=== PATIENT | female | born 1985 | race Asian ===

== ENCOUNTER → 2023-08-15 12:41 | Outpatient (CLI) | payer OTHER, SELFPAY ==
--- NOTE | ~2023-08-15 | US_ITS ---
EXAMINATION: US pelvic complete w TV DATE: 08/15/2023 13:13 INDICATION: Abnormal uterine bleeding Comparison:No prior studies for comparison. TECHNIQUE: Multiple transabdominal and endovaginal sonographic images of the pelvis performed. FINDINGS: The uterus measures 6.8 x 5.4 x 5.6 cm. Uterus is retroverted. The endometrial complex jadiel ures 6 mm. The right ovary measures 2.9 x 2.3 x 3.3 cm and the left ovary measures 2.4 x 2.3 x 1.4 cm. There ar e small follicles in each ovary. Normal doppler signal in both ovaries. There is trace free fluid in the pelvis. There are no abnormal masses seen on either side. IMPRESSION: 1. Unremarkable pelvic ultrasound. Reviewed, dictated and finalized at location B.
== END ==
PROVIDERS: PCP Obstetrics & Gynecology; Visit Provider Obstetrics & Gynecology
DX: N93.9 Abnormal uterine and vaginal bleeding, unspecified (principal)
CPT/HCPCS: 76830; 76856

== ENCOUNTER 2023-08-15 13:29 | Outpatient (CLI) | payer OTHER, SELFPAY ==
[2023-08-15 14:18] LABS: Hemoglobin 11.7 g/dL (12.0-15.0); Mean Corpuscular HGB Conc 31.6 g/dl (32-36); Mean Corpuscular Hemoglobin 29.9 pg (26-34); Mean Corpuscular Volume 94.6 fl (80-100); Mean Platelet Volume 9.4 fl (7.4-10.4); Platelet Count Result 325 k/mm3 (150-375); Red Blood Count 3.91 M/mm3 (4.2-5.4); Red Cell Distribution Width 12.2 % (11.5-14.5); White Blood Count 3.8 K/mm3 (4.5-10.0)
[2023-08-15 14:47] LABS: Beta HCG Quantitative < 2.39 mIU/ML
[2023-08-15 14:51] LABS: Free T4 Free Thyroxine 0.89 ng/mL (0.78-2.19)
[2023-08-18 06:31] LABS: Prolactin 6.9 ng/mL (***)
== END 2023-08-15 13:30 | disposition home or self-care (01) ==
LOC: ANHLAB 13:32
PROVIDERS: PCP Obstetrics & Gynecology; Visit Provider Obstetrics & Gynecology
DX: N93.9 Abnormal uterine and vaginal bleeding, unspecified (principal)
CPT/HCPCS: 36415; 84146; 84439; 84443; 84702; 85027

== ENCOUNTER → 2023-11-03 10:49 | Outpatient (CLI) | payer OTHER, SELFPAY ==
--- NOTE | ~2023-11-03 | US_ITS ---
EXAMINATION: US OB <= 14 weeks fetus DATE: 11/03/2023 INDICATION: Spotting during first trimester TECHNIQUE: Real-time pelvic ultrasound utilizing transabdominal probe was performed. The oskar brooks radiologist was not present for the study. COMPARISON: None. FINDINGS: The uterus measures 12.4 x 7.0 x 9.5 cm. There is an intrauterine gestational sac. A yolk sac and fe candy pole are identified. The crown rump length measures 2.2 cm, which correlates with an estimated ge stational age of 9 weeks and 0 days. heart motion is identified measuring 169 beats per minute (bpm) by M-mode Doppler. 1.7 x 1.2 x 1.0 cm anechoic subchorionic hematoma along the right side of th e gestational sac. The right ovary measures 4.3 x 2.5 x 2.7 cm. The left ovary measures 3.9 x 2.5 x 3.5 cm. 2.7 cm hypoe choic likely corpus luteum cyst in the left ovary. There is no free fluid in the pelvis. IMPRESSION: 1. Single living fetus with heart rate of 169 bpm. 2. Gestational age by ultrasound of 9 weeks 0 day(s) +/- 6 day(s) with ultrasound estimated date of delivery ([facility]) of 06/07/2024. 3. Small subchorionic hematoma. Reviewed, dictated and finalized at location A. L FITTER IMPRESSION: 1. Single living fetus with heart rate of 169 bpm. 2. Gestational age by ultrasound of 9 weeks 0 day(s) +/- 6 day(s) with ultraso und estimated date of delivery ([facility]) of 06/07/2024. 3. Small subchorionic hematoma.
== END ==
PROVIDERS: PCP Advanced Practice Midwife; Visit Provider Advanced Practice Midwife
DX: O41.8X10 Other specified disorders of amniotic fluid and membranes, first trimester, not applicable or unspecified (principal); O26.851 Spotting complicating pregnancy, first trimester; Z3A.00 Weeks of gestation of pregnancy not specified
CPT/HCPCS: 76801

== ENCOUNTER → 2023-12-05 08:25 | Outpatient (CLI) | payer OTHER, SELFPAY ==
--- NOTE | ~2023-12-05 | US_ITS ---
EXAMINATION: US OB limited DATE: 12/05/2023 08:42 INDICATION: Subchorionic hematoma follow-up. First trimester. TECHNIQUE: Real-time ultrasound of the pelvis was performed. COMPARISON: None. FINDINGS: There is a single fetus in variable presentation. The placenta is normal. heart rate is 160 be ats per minute (bpm). The amniotic fluid volume is subjectively normal. IMPRESSION: 1. Single living fetus in variable presentation. 2. Normal placenta. No subchorionic hematoma. Reviewed, dictated and finalized at location A. HOUSE SUPERVISOR
== END ==
PROVIDERS: PCP Advanced Practice Midwife; Visit Provider Advanced Practice Midwife
DX: O36.8910 Maternal care for other specified fetal problems, first trimester, not applicable or unspecified (principal); Z3A.00 Weeks of gestation of pregnancy not specified
CPT/HCPCS: 76815

== ENCOUNTER 2024-05-21 11:47 | Outpatient (CLI) | payer OTHER, SELFPAY ==
--- NOTE | ~2024-05-21 | US_ITS ---
EXAMINATION: US OB follow up DATE: 05/21/2024 12:16 INDICATION: Advanced maternal age. Third trimester. TECHNIQUE: Real-time ultrasound of the pelvis was performed. COMPARISON: Ultrasound 12/05/2023, 11/03/2023 FINDINGS: There is a single living fetus in vertex presentation. The placenta is fundal and anterior. he art rate is 155 beats per minute (bpm). The amniotic fluid index is 14.2 cm, which is normal. The following biometric data were obtained: Biparietal diameter (BPD): 9.1 cm; head circumference (HC): 32.6 cm; abdominal circumference (AC): 33 .3 cm; femur length (FL): 7.2 cm. These measurements are concordant. Estimated weight is 3096 g +/- 464 g, which correlates with the 45th percentile when 06/07/24 is used as estimated date of delivery. As single measurements, these parameters are each equal to the following estimated gestational ages: BPD: 37 weeks 0 days. HC: 36 weeks 6 days. AC: 37 weeks 1 days. FL: 36 weeks 5 days. estimated gestational age based solely on measurements from this exam is 37 weeks 0 days +/- 2 weeks 4 days. IMPRESSION: 1. Single living fetus in vertex presentation. 2. Estimated weight is 3096 g +/- 464 g, which correlates with the 45th percentile when 4 is used as estimated date of delivery. This date was set by ultrasound on 11/03/2023. Reviewed, dictated and finalized at location A. IMPRESSION: 1. Single living fetus in vertex presentation. 2. Estimated weight is 3096 g +/- 464 g, which correlates with the 45th percentile when 06/07/24 is used as estimated date of delivery. This date was se t by ultrasound on 11/03/2023.
== END 2024-05-21 11:48 ==
LOC: MICIMG 11:48
PROVIDERS: PCP Internal Medicine Gastroenterology; Visit Provider Advanced Practice Midwife
DX: O09.513 Supervision of elderly primigravida, third trimester (principal)
CPT/HCPCS: 76816

== ENCOUNTER 2024-06-04 07:30 | Inpatient (IN) | payer OTHER, SELFPAY ==
[2024-06-04] VITALS (13 sets, daily range): BP systolic 101–135; BP diastolic 59–87; PULSE 56–78; RESP 16–20; TEMP 36.3–36.9; O2SAT 96–99; BMI 28.7
--- NOTE | 2024-06-04 07:30 | LDADM ---
This patient, Juhi Yip, was admitted to Labor/Delivery/Recovery 106 on 06/04/24 at 07:30. Plans for labor, pain management and were discussed with patient. Patient/family oriented to hospital policies and general routines including ID bracelet, bed and alarms, visiting hours, pain management, procedures, bathroom and other care routines, personal items, smoking policy, room service/diet and guest tray routines, infant security routines, and visiting hours. Patient/Family are encouraged to report perceived risks to care and to ask questions if they do not understand what they are told or what they should do. See OBIX for further documentation.
[2024-06-04 08:10] LABS: Basophils Percent Auto 0.3 % (0.2-1.2); Eosinophils Absolute Auto 0.1 K/mm3 (0-0.3); Eosinophils Percent Auto 0.9 % (0-4.4); Hematocrit 37.5 % (37.0-47.0); Hemoglobin 13.1 g/dL (12.0-15.0); Immature Granulocyte Absolute 0.05 K/mm3 (0.00-0.031); Immature Granulocyte Percent A 0.6 % (0-0.5); Lymphocytes Absolute Auto 1.46 K/mm3 (0.9-3.2); Lymphocytes Percent Auto 18.5 % (18.3-44.2); Mean Corpuscular HGB Conc 34.9 g/dl (32-36); Mean Corpuscular Hemoglobin 34.7 pg (26-34); Mean Corpuscular Volume 99.5 fl (80-100); Monocytes Absolute Auto 0.4 K/mm3 (0.1-0.6); Monocytes Percent Auto 5.1 % (2.6-8.5); Neutrophils Absolute Auto 5.9 K/mm3 (1.3-6.7); Neutrophils Percent Auto 74.6 % (45.5-73.1); Platelet Count Result 230 k/mm3 (150-375); Red Blood Count 3.77 M/mm3 (4.2-5.4); Red Cell Distribution Width 12.9 % (11.5-14.5); White Blood Count 7.9 K/mm3 (4.5-10.0)
--- NOTE | 2024-06-04 08:10 | WPDOBADMIT ---
Obstetrics - Admit Note Admission Note: record reviewed. No pertinent additions to the history and/or any subsequent changes in the physical findings that are not consistent with the expected course of the were found. Additions to the history and/or subsequent changes in the physical findings follow. None.Here in active labor. 5 cm on admit and now 7/100/-1. AROM with clear fluid. Plan expectant mgmt. FHTs cat I.
[2024-06-04] MEDS: OXYTOCIN 30 UNITS/NS 500 ML 30 UNITS/500 ML BAG 999 UNITS IV CONT (08:55)
[2024-06-04 08:59] LABS: HIV 1/2 Ab P24 Ag Result Negative (Negative)
--- NOTE | 2024-06-04 09:05 | PM.OBPRVD ---
OB - Vaginal Delivery Note Procedure Delivery date: 06/04/24 Induction method: None Delivery augmentation: Rupture of Membranes Delivery monitor: External FHT and External Uterine Route of delivery: Episiotomy description: None Laceration Description: Perineal - 2nd Degree Delivery repair: vicryl (3-0) Specimen: No Quantitative Blood Loss (ml): 200 Anesthesia type: Local Disposition: Floor Complications: No immediate complications Baby Date of : 06/04/24 Gestational Age by Date: 38 (38 6/7) Infant gender: Male Weight (pounds): 7 Weight (ounces): 9 presentation: vertex position: Right Occiput Anterior Placenta delivery description: Spontaneous Cord Vessel Description: 3 Vessels and Delayed Cord Clamping score one minute: 8 score five minutes: 9
--- NOTE | 2024-06-04 09:07 | PM.OBDSVD ---
DS: Admitting Diagnosis Discharge Date 06/05/24 Admitting Diagnosis 38 6/7 wks in labor DS: Discharge Diagnosis Discharge Diagnosis (1) (normal spontaneous vaginal delivery): Code(s): O80 - Encounter for full-term uncomplicated delivery Status: Acute OB - DS: Summary OB Procedures : Ultrasound OB Procedures Intrapartum: Spontaneous Vag Delivery OB Procedures: : None Peripartum Data Delivery Method: Natural Vaginal Laceration Description: Perineal - 2nd Degree Episiotomy description: None complications: none Status at Discharge Functional status at discharge: independent ambulation Overall status at discharge: patient is progressing back to baseline Time Spent with Patient Time attestation: Total time spent providing and/or coordinating discharge services: DS: Data Data Completed and Pending Labs on day of discharge: Labs from last 24 hours 06/04/24 08:04 WBC 7.9 RBC 3.77 L Hgb 13.1 Hct 37.5 MCV 99.5 MCH 34.7 H MCHC 34.9 RDW 12.9 Plt Count 230 MPV 10.0 Immature Gran % (Auto) 0.6 H Neut % (Auto) 74.6 H Lymph % (Auto) 18.5 [place] % (Auto) 5.1 Eos % (Auto) 0.9 Baso % (Auto) 0.3 Lymph # (Auto) 1.46 [place] # (Auto) 0.4 Eos # (Auto) 0.1 Baso # (Auto) 0.0 Abs Immat Gran (auto) 0.05 H Absolute Neuts (auto) 5.9 Absolute Nucleated RBC 0.000 Nucleated RBC % 0.0 RPR Pending HIV 1&2 Ab/P24 Ag 4thGn Negative Blood Type B Positive Antibody Screen Negative Discharge Plan Discharge Attending physician on discharge: Swati Crowley Discharging Clinician: Swati Crowley Anticipated Discharge Date/Time: 06/06/24 09:07 Patient Disposition: Home, Self-Care Activity: may shower and pelvic rest Diet: regular Patient Instructions: Antibiotic Form Stand Alone Forms: General Discharge Information Follow-up/Referrals: Nany Malin CNM [Certified Nurse Water Proofer] - 6 Weeks Discharge Medications: Continued ergocalciferol (vitamin D2) [Vitamin D2] 1,250 mcg (50,000 unit) Capsule 1,250 mcg PO WEEKLY Classic 28 mg iron- 800 mcg Tablet 1 tablet PO DAILY Date of admission: 06/04/24 07:30 Primary Care Provider: Ishmael,Manny Macias Admitting Provider: Swati Crowley Attending physician on admission: Swati Crowley Condition: Stable
[2024-06-04] MEDS: OXYTOCIN 30 UNITS/NS 500 ML 30 UNITS/500 ML BAG 125 UNITS IV CONT (09:29)
[2024-06-04 09:50] LABS: Rapid Plasma Reagin Non-Reactive (NonReactive)
--- NOTE | 2024-06-04 11:30 | PC.NURSE ---
Patient transferred to post room #280 via wheelchair. Support person present. Oriented to unit, room, information board, rooming in, admission packet and security measures. Patient verbalizes understanding.
--- NOTE | 2024-06-04 12:15 | PC.NURSE ---
RN overheard patient's talking with patient care secretary at the front end developer designer and he had told her that he is not the father of the baby but he is her , and that he was going to check with the mother if it was still her plan for the baby to eventually go live with the biological father's mother (paternal grandmother), he wanted to make sure he understood her correctly. RN spoke with mother and she said that the father of the baby was in [facility] in [place] and that Goldy, her , was not the father but they do have a 7 y/o daughter together, mother wasn't sure right now if the FOB would see the baby later, she did not mention anything about the baby going to live with the paternal grandmother. Care Coordination consult ordered.
--- NOTE | 2024-06-04 17:30 | PC.NURSE ---
Addendum entered by Paloma Acosta RN 06/04/24 17:58: Patient has [facility] Medical's contact information if she needs any additional parts for her pump. She knows that she can contact them as needed. We reviewed pump care and cleaning, using the manual's recommendations. Mom pumped some drops and finger fed them to . Reported to primary RN. Original Note: Discussed patient's plan for feeding . She is breast and bottle feeding. She pumped and bottle fed with her first baby because she had a latch issue. She got a Medela pump through [employer] but is returning it because it wasn't working. Offered an insurance pump for use in the hospital and to take home. Mom agrees to a Zomee pump. We used the 24mm flange, and set mom up with the pump. Reviewed phases and the manual with patient and we discussed use of breastmilk. She knows that she may just pump drops that she can finger feed to baby. If she gets any volume, we discussed bottle feeding it to baby now. Mother agrees with this plan. She will pump for 15 minutes, give anything she gets, or feed Gentlease again at this feeding. Reported to Primary RN.
[2024-06-05 05:20] LABS: Hematocrit 34.7 % (37.0-47.0); Hemoglobin 12.4 g/dL (12.0-15.0)
--- NOTE | 2024-06-05 07:45 | P.PNOB_ITS ---
OB - PN: Subj Subjective Date/time seen: 06/05/24 07:45 Patient comments: no complaints and pain well controlled baby status: doing well [place] feeding status: breast and bottle feeding OB - PN: Obj Data Labs 06/05/24 03:41 Labs: Laboratory Results - last 24 hr 06/04/24 06/05/24 08:04 03:41 WBC 7.9 RBC 3.77 L Hgb 13.1 12.4 Hct 37.5 34.7 L MCV 99.5 MCH 34.7 H MCHC 34.9 RDW 12.9 Plt Count 230 MPV 10.0 Immature Gran % (Auto) 0.6 H Neut % (Auto) 74.6 H Lymph % (Auto) 18.5 [place] % (Auto) 5.1 Eos % (Auto) 0.9 Baso % (Auto) 0.3 Lymph # (Auto) 1.46 [place] # (Auto) 0.4 Eos # (Auto) 0.1 Baso # (Auto) 0.0 Abs Immat Gran (auto) 0.05 H Absolute Neuts (auto) 5.9 Absolute Nucleated RBC 0.000 Nucleated RBC % 0.0 RPR Non-reactive HIV 1&2 Ab/P24 Ag 4thGn Negative Blood Type B Positive Antibody Screen Negative OB - PN A/P Plan day: 1 Plan: routine care, discharge home, follow up 6 weeks and other (unsure control plan but will use condoms for now) Time Spent With Patient Time: Total time spent is greater than 50% in coordination of care (as documented) at patient's floor/unit and/or counseling patient: Exam : Bimanual exam- vagina & uterus: other (Uterus firm, nt @U)
--- NOTE | 2024-06-05 08:40 | PC.NURSE ---
Met with patient to offer services. She has not been pumping through the night, she says she will pump when she gets home. She has bottle fed and not put baby to breast. Patient declines any assistance at this time. She has the phone number on her board if she needs any further help. Reported to Primary RN.
[2024-06-05 09:00] VITALS: BP 117/86; PULSE 70; RESP 16; TEMP 36.5; O2SAT 99
[2024-06-05] MEDS: MULTIVIT/MIN/PREN/FOL AC/IRON TABLET 1 TAB PO (10:14)
--- NOTE | 2024-06-05 11:44 | PCCCNOTE ---
Care Coordination. Patient referred to CC for FOB being in [place] [facility]. Met with mother. She is , but spouse is not FOB. CARMEN is apparently in assisted due to being an undocumented citizen. Pt. reports he still wants to be listed as FOB and have rights to infant that she and her spouse will try to allow him and his family access to baby. She reports having all necessary baby care items. She denies needs for or counseling resources such as WIC. She plans to return home with her spouse and older child. No further CC needs identified.
[2024-06-06 10:19] VITALS: BP 119/80; PULSE 81; RESP 18; TEMP 36.6; O2SAT 100
== END 2024-06-05 12:15 | disposition home or self-care (01) | DRG 807 ==
LOC: ANHLDR 09:08 → ANHOB2 11:31
PROVIDERS: Admitting Provider Obstetrics & Gynecology Gynecology; PCP Internal Medicine Gastroenterology; Referring Provider Advanced Practice Midwife; Visit Provider Obstetrics & Gynecology Gynecology
DX: O70.1 Second degree perineal laceration during delivery (principal); Z37.0 Single live birth; Z3A.38 38 weeks gestation of pregnancy
CPT/HCPCS: 36415; 85014; 85018; 85025; 86592; 86703; 86850; 86900; 86901; A9270; G0432; J2590